=== PATIENT | male | born 1960 | race Caucasian/White ===

== ENCOUNTER 2016-12-22 14:00 | Emergency (ER) | payer BC ==
[~2016-12-22] VITALS: Ht 180.3 cm; Wt 92.2 kg
[~2016-12-22 14:00] MED LIST: FLEXERIL10 MG PO; MEDROL DOSEPAK4 MG PO; NAPROSYN500 MG PO
[2016-12-22] MEDS ORDERED: MOTRIN600 MG PO (16:04)
[2016-12-22] MEDS ORDERED: COUMADIN5 MG PO (16:39)
[2016-12-22] MEDS ORDERED: LOVENOX100 MG/1 M SC (16:39)
[2016-12-22 17:22] VITALS: BP 155/90
== END 2016-12-22 17:25 | disposition home or self-care (01) ==
LOC: EME 14:00
DX: I80.01 Phlebitis and thrombophlebitis of superficial vessels of right lower extremity (principal); Z87.442 Personal history of urinary calculi
CPT/HCPCS: 93971; 99281; 99284; J1650